=== PATIENT | female | born 1950 | race Caucasian/White ===

== ENCOUNTER 2023-09-21 09:14 | Day surgery (SDC) | payer MEDICARE ==
[~2023-09-21 09:14] MED LIST: ALPRAZolam 0.25 MG TAB PO PRN; ALPRAZolam 0.5 MG TAB PO PRN; ASPIRIN 325 MG TAB PO ONE; HEPARIN SODIUM,PORCINE (1 ML) 2,500 UNIT in SODIUM CHLORIDE 0.9% 250 ML IRRIGATION PRN; HEPARIN SODIUM,PORCINE 10,000 UNIT in SODIUM CHLORIDE 0.9% 1,000 ML IRRIGATION PRN; NITROGLYCERIN SL TABS 0.4 MG TAB SUBLINGUAL PRN; SODIUM CHLORIDE 0.9% 1,000 ML in EMPTY BAG 1 BAG IV SCH
[2023-09-21 09:42] LABS: Basophils % (A) 0 %; Eosinophils % (A) 1 %; HCT 47.5 % (34.0-46.0); HGB 15.6 gm/dL (11.4-16.0); Lymphocytes # (A) 1.9 k/uL (1.0-4.8); Lymphocytes % (A) 33 %; MCH 32.7 pg (25.0-35.0); MCHC 32.7 g/dL (31.0-37.0); Mean Platelet Volume 8.1; Monocytes # (A) 0.3 k/uL (0-1.0); Monocytes % (A) 5 %; Neutrophils # (A) 3.4 k/uL (1.3-7.7); Neutrophils % (A) 60 %; Platelet Count 241 k/uL (150-450); RBC 4.76 m/uL (3.80-5.40); WBC 5.7 k/uL (3.8-10.6)
[2023-09-21 09:50] VITALS: RESP 18; TEMP 97.9
[2023-09-21] MEDS ORDERED: LIDOCAINE 1% INJ 10MG/ML (20 ML MDV) ONE (09:53)
[2023-09-21] MEDS ORDERED: VERAPAMIL 2.5 MG/ML 2 ML AMP ONE (09:53)
[2023-09-21 10:01] LABS: African American GFR (CKD) >90 (>60 ml/min/1.73 sqM); Anion Gap 12 mmol/L; Blood Urea Nitrogen 15 mg/dL (7-17); Calcium 9.3 mg/dL (8.4-10.2); Carbon Dioxide 25 mmol/L (22-30); Chloride 105 mmol/L (98-107); Glucose 100 mg/dL (74-99); Non-African American GFR(CKD) 88 (>60 ml/min/1.73 sqM); Sodium 142 mmol/L (137-145)
[2023-09-21] MEDS ORDERED: HEPARIN SODIUM 1,000 UN/ML (10ML VL) ONE (10:05)
[2023-09-21] MEDS ORDERED: MIDAZOLAM 2 MG/2 ML VIAL IVP ONE (10:07)
[2023-09-21] MEDS ORDERED: LIDOCAINE 1% INJ 10MG/ML (20 ML MDV) SQ ONE (10:08)
[2023-09-21] MEDS ORDERED: VERAPAMIL SYRINGE (5 MG/10 ML) INTRAARTER ONE (10:10)
[2023-09-21] MEDS ORDERED: HEPARIN SODIUM 1,000 UN/ML (10ML VL) IV ONE (10:13)
[2023-09-21] MEDS ORDERED: IOPAMIDOL-370 100ML BTL INJ ONE (10:18)
[2023-09-21 10:19] LABS: Potassium 4.4 mmol/L (3.5-5.1)
[2023-09-21] MEDS ORDERED: RX INFO: IV CONTRAST WAS GIVEN 1 EACH MISC MISCELLANE PRN (10:21)
--- NOTE | 2023-09-21 10:23 | P.PCN ---
Date of Procedure: 09/21/23 Operative Findings: CARDIAC CATHETERIZATION PERFORMING PHYSICIAN: Jt Murray MD, RPVI PROCEDURE PERFORMED: 1. Selective right and left coronary angiogram 2. Left heart catheterization 3. Ultrasound-guided access of the right radial artery INDICATION: Chest discomfort and abnormal stress test COMPLICATION: None APPROACH: Right radial artery LEVEL OF SEDATION: Moderate with a sedation length of 13 minutes PROCEDURE DESCRIPTION: After obtaining an informed consent, the patient was brought to cardiac cath laboratory technician. Local anesthesia was performed using lidocaine subcutaneously. The right radial artery was cannulated using Seldinger technique, the guidewire passed easily, following that we advanced a 5-Russian sheath dilator assembly, the wire and dilator were removed and sheath was flushed. Following that, 2 mg of verapamil along with 3000 unit heparin were given. Selective right and left coronary angiogram using a 6-Russian JR4 and JL 3.5 catheters. Following that we did left heart catheterization using 6-Russian pigtail c atheter. The procedure was completed there was no complication. SELECTIVE CORONARY ANGIOGRAM: The right coronary artery: Large-caliber vessel and a dominant vessel and is angiographically normal Left main: Is angiographically normal. Bifurcates into an LCx and LAD The left circumflex: Large caliber vessel nondominant vessel. It gives rise into an OM1 and OM 2 and old appeared to be angiographically normal The left anterior descending artery: The proximally is normal. The mid LAD has mild disease appeared to be in the range of 30-40% only. The LAD distally appears to be angiographically normal HEMODYNAMICS: The LVEDP was 4 mmHg was no significant gradient across aortic valve CONCLUSION: 1. Mild to moderate disease involving the mid LAD 2. Normal left sided filling pressure POSTPROCEDURE MANAGEMENT: Medical treatment
[2023-09-21] MEDS ORDERED: SODIUM CHLORIDE 0.9% 1,000 ML IV SCH (10:30)
[2023-09-21 13:37] VITALS: BP 125/73; PULSE 72
== END 2023-09-21 14:35 | disposition home or self-care (01) ==
LOC: CATHCVL 09:14
PROVIDERS: ATTEND Internal Medicine Interventional Cardiology
DX: I38 Endocarditis, valve unspecified (principal); E78.5 Hyperlipidemia, unspecified; Z82.49 Family history of ischemic heart disease and other diseases of the circulatory system; Z79.82 Long term (current) use of aspirin; Z79.899 Other long term (current) drug therapy
CPT/HCPCS: 93458; 76937; 80048; 85025; C1769 ×2; C1894; J2250; J2001; J1644; Q9967